=== PATIENT | male | born 1975 | race Caucasian/White ===

== ENCOUNTER 2017-09-23 22:06 | Emergency (ER) | payer SELFPAY ==
[~2017-09-23] VITALS: Ht 193 cm; Wt 107.0 kg
[2017-09-23 22:15] VITALS: RESP 16; O2SAT 97
[2017-09-23 22:17] VITALS: BP 154/92; PULSE 68; RESP 18; TEMP 98.7; O2SAT 100
[2017-09-23] MEDS ORDERED: SODIUM CHLOR 0.9% 1000 ML INJ 1,000 ML IV SCH (22:51)
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
[2017-09-23] MEDS ORDERED: SODIUM CHLORIDE 0.9% FLUSH 10 ML FLUSH IV FLUSH PRN (23:00)
[2017-09-23 23:14] LABS: AUTOMATED NEUTROPHIL # 2.6 TH/MM3 (1.8-7.7); BASOPHIL % 0.8 % (0.0-2.0); EOSINOPHIL # 0.2 TH/MM3 (0-0.4); EOSINOPHIL % 5.8 % (0.0-4.0); HEMATOCRIT 39.5 % (39.0-51.0); HEMOGLOBIN 13.9 GM/DL (13.0-17.0); LYMPH % 17.5 % (9.0-44.0); LYMPHOCYTE # 0.7 TH/MM3 (1.0-4.8); MEAN CELL VOLUME 89.1 FL (80.0-100.0); MEAN CORPUSCULAR HEMOGLOBIN 31.3 PG (27.0-34.0); MEAN CORPUSCULAR HGB CONC 35.1 % (32.0-36.0); MEAN PLATELET VOLUME 8.6 FL (7.0-11.0); MONO % 9.6 % (0.0-8.0); MONOCYTE # 0.4 TH/MM3 (0-0.9); NEUT % 66.3 % (16.0-70.0); PLATELET COUNT 181 TH/MM3 (150-450); RED BLOOD COUNT 4.43 MIL/MM3 (4.50-5.90); RED CELL DISTRIBUTION WIDTH 12.8 % (11.6-17.2)
[2017-09-23 23:26] LABS: ALBUMIN 4.2 GM/DL (3.4-5.0); AST (GOT) 19 U/L (15-37); BICARBONATE 27.7 MEQ/L (21.0-32.0); BLOOD UREA NITROGEN 9 MG/DL (7-18); CALCIUM 8.7 MG/DL (8.5-10.1); CHLORIDE 103 MEQ/L (98-107); CREATININE 1.02 MG/DL (0.60-1.30); GLOMERULAR FILTRATION RATE 80 ML/MIN (>89); GLUCOSE,RANDOM 70 MG/DL (74-106); SODIUM (NA) 138 MEQ/L (136-145)
[2017-09-23 23:27] LABS: ALT (GPT) 22 U/L (12-78)
[2017-09-23 23:36] LABS: ALKALINE PHOSPHATASE 69 U/L (45-117); TOTAL PROTEIN 7.2 GM/DL (6.4-8.2)
--- NOTE | 2017-09-23 23:41 | RADRPT ---
EXAM DATE/TIME: 09/23/2017 23:08 [facility] COMPARISON: No previous studies available for comparison. INDICATIONS : Altered mental status. RADIATION DOSE: 56.35 CTDIvol (mGy) MEDICAL HISTORY : None SURGICAL HISTORY : None. ENCOUNTER: Initial ACUITY: 1 day PAIN SCALE: 0/10 LOCATION: cranial TECHNIQUE: Multiple contiguous axial images were obtained of the head. Using automated exposure control and adj ustment of the mA and/or kV according to patient size, radiation dose was kept as low as reasonably a chievable to obtain optimal diagnostic quality images. DICOM format image data is available electro nically for review and comparison. FINDINGS: CEREBRUM: The ventricles are normal for age. No evidence of midline shift, mass lesion, hemorrhage or acute in farction. No extra-axial fluid collections are seen. POSTERIOR FOSSA: The cerebellum and brainstem are intact. The 4th ventricle is midline. The cerebellopontine angle i s unremarkable. EXTRACRANIAL: The visualized portion of the orbits is intact. SKULL: The calvaria is intact. No evidence of skull fracture. CONCLUSION: Normal examination. Jeremiah Moreira MD on September 23, 2017 at 23:37 Board Certified Radiologist. This report was verified electronically.
[2017-09-24] MEDS ORDERED: POTASSIUM CHLORIDE 20 MEQ CONTROLLED RELEASE TAB PO ONE
[2017-09-24] MEDS ORDERED: OLANZapine IM 10 MG VIAL IM ONE (00:45)
[2017-09-24 02:00] VITALS: BP 143/71; PULSE 65; RESP 18; O2SAT 98
[2017-09-24 14:00] VITALS: BP 131/61; PULSE 65; RESP 18; TEMP 99; O2SAT 98
[2017-09-24 17:30] VITALS: BP 116/56; PULSE 84; RESP 20; O2SAT 99
[2017-09-24 22:17] VITALS: BP 140/71; PULSE 62; RESP 17; TEMP 98.5; O2SAT 97
[2017-09-25 02:55] VITALS: BP 114/66; PULSE 60; RESP 18; TEMP 98; O2SAT 95
[2017-09-25 06:48] VITALS: BP 130/80; PULSE 81; RESP 16; TEMP 99.8; O2SAT 98
[2017-09-25 11:29] VITALS: BP 126/65; PULSE 73; RESP 18; O2SAT 98
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
--- NOTE | 2017-09-25 14:59 | PD ---
Physical Exam Date Seen by Provider: Sep 25, 2017 Time Seen by Provider: 14:57 Data Data Last Documented VS Vital Signs Date Time Temp Pulse Resp B/P (MAP) Pulse Ox O2 Delivery O2 Flow Rate FiO2 09/25/17 11:29 73 18 126/65 (85) 98 Room Air 09/25/17 06:48 99.8 Orders Orders Ammonia (09/23/17 22:51) Complete Blood Count With Diff (09/23/17 22:51) Comprehensive Metabolic Panel (09/23/17 22:51) Creatine Kinase (Cpk) (09/23/17 22:51) Thyroid Stimulating Hormone (09/23/17 22:51) Ct Brain W/O Iv Contrast(Rout) (09/23/17 22:51) Ecg Monitoring (09/23/17 22:51) Iv Access Insert/Monitor (09/23/17 22:51) Oximetry (09/23/17 22:51) Sodium Chloride 0.9% Flush (Ns Flush) (09/23/17 23:00) Sodium Chlor 0.9% 1000 Ml Inj (Ns 1000 M (09/23/17 22:51) Drug Screen, Random Urine (09/23/17 22:51) Alcohol (Ethanol) (09/23/17 22:51) Psych Screen (09/23/17 22:58) Potassium Chloride (Kcl) (09/24/17 00:00) Olanzapine Inj (Zyprexa Inj) (09/24/17 00:45) Diet Regular Basic (09/24/17 Breakfast) Diet Regular Basic (09/24/17 Dinner) Diet Regular Basic (09/25/17 Breakfast) Diet Regular Basic (09/25/17 Lunch) Labs Laboratory Tests Test 09/23/17 22:57 09/24/17 00:31 White Blood Count 4.0 TH/MM3 Red Blood Count 4.43 MIL/MM3 Hemoglobin 13.9 GM/DL Hematocrit 39.5 % Mean Corpuscular Volume 89.1 FL Mean Corpuscular Hemoglobin 31.3 PG Mean Corpuscular Hemoglobin Concent 35.1 % Red Cell Distribution Width 12.8 % Platelet Count 181 TH/MM3 Mean Platelet Volume 8.6 FL Neutrophils (%) (Auto) 66.3 % Lymphocytes (%) (Auto) 17.5 % Monocytes (%) (Auto) 9.6 % Eosinophils (%) (Auto) 5.8 % Basophils (%) (Auto) 0.8 % Neutrophils # (Auto) 2.6 TH/MM3 Lymphocytes # (Auto) 0.7 TH/MM3 Monocytes # (Auto) 0.4 TH/MM3 Eosinophils # (Auto) 0.2 TH/MM3 Basophils # (Auto) 0.0 TH/MM3 CBC Comment DIFF FINAL Differential Comment Blood Urea Nitrogen 9 MG/DL Creatinine 1.02 MG/DL Random Glucose 70 MG/DL Total Protein 7.2 GM/DL Albumin 4.2 GM/DL Calcium Level 8.7 MG/DL Alkaline Phosphatase 69 U/L Aspartate Amino Transf (AST/SGOT) 19 U/L Alanine Aminotransferase (ALT/SGPT) 22 U/L Total Bilirubin 1.0 MG/DL Sodium Level 138 MEQ/L Potassium Level 3.3 MEQ/L Chloride Level 103 MEQ/L Carbon Dioxide Level 27.7 MEQ/L Anion Gap 7 MEQ/L Estimat Glomerular Filtration Rate 80 ML/MIN Ammonia 35 MCMOL/L Total Creatine Kinase 149 U/L Thyroid Stimulating Hormone 3rd Gen 1.370 uIU/ML Ethyl Alcohol Level LESS THAN 3 MG/DL Urine Opiates Screen NEG Urine Barbiturates Screen NEG Urine Amphetamines Screen NEG Urine Benzodiazepines Screen NEG Urine Cocaine Screen POS Urine Cannabinoids Screen NEG MDM Supervised Visit with MARY: No Narrative Course 42-year-old male who presented to the ED for psychiatric evaluation. He was originally evaluated by Thompson HURTADO and medically cleared. He was then evaluated by Dr. Rodgers, psychiatrist, who lifted the BA. Diagnosed with adjustment disorder and cocaine abuse. He is instructed to follow up with [facility]. He is stable and discharged home. Diagnosis Primary Impression: Medical clearance for psychiatric admission Additional Impressions: Adjustment disorder with depressed mood Cocaine abuse Referrals: [facility] (Out patient) call for appointment Medication Management Patient Instructions: General Instructions, Stress (ED), Cocaine Abuse (ED) Departure Forms: Tests/Procedures Scripts No Active Prescriptions or Reported Meds Disposition: 01 DISCHARGE HOME Fannie Francis Sep 25, 2017 14:59
== END 2017-09-25 16:18 | disposition home or self-care (01) ==
LOC: NEPD 22:06 → NEPJ 09-25 16:18
DX: F43.21 Adjustment disorder with depressed mood (principal); F14.10 Cocaine abuse, uncomplicated
CPT/HCPCS: 70450; 80053; 80307; 82140; 82550; 84443; 85025; 96360; 96372; 99285; J7030